=== PATIENT | female | born 1970 | race Caucasian/White ===

== ENCOUNTER 2021-01-03 08:43 | Outpatient (REF) | payer OTHER, SELFPAY ==
[2021-01-03 11:03] LABS: Hemoglobin 12.6 g/dl (12.0-16.0); Mean Corpuscular HGB Conc 33.2 g/dl (31.0-35.0); Mean Corpuscular Hemoglobin 29.2 pg (27.0-33.0); Mean Platelet Volume 9.7 fL (9.4-12.3); Platelet Count 235 X10*3/uL (160-400); Red Blood Count 4.32 X10*6/uL (4.20-5.50); Red Cell Distribution Width 12.1 % (11.0-16.0); White Blood Count 4.9 X10*3/uL (4.8-10.8)
[2021-01-03 11:29] LABS: Alanine Aminotransferase 22 U/L (0-31); Albumin Level 4.5 g/dL (3.5-5.0); Alkaline Phosphatase 62 U/L (39-117); Anion Gap 12 (12-20); Aspartate Amino Transferase 17 U/L (5-31); Bilirubin Total 0.3 mg/dL (0.0-1.0); Blood Urea Nitrogen 22 mg/dL (9-16); Calcium 9.2 mg/dL (8.4-10.2); Carbon Dioxide 25 mmol/L (22-29); Chloride 107 mmol/L (96-108); Cholesterol 224 mg/dL; Estimated Glomerular Filt Rate > 60; Glucose Random 102 mg/dL (60-115); HDL Cholesterol 61 mg/dL; LDL Cholesterol Calculated 147 mg/dl; Potassium 4.2 mmol/L (3.3-5.1); Sodium 140 mmol/L (135-145); Total Protein 7.2 g/dL (6.5-8.0); Triglycerides 80 mg/dL
== END 2021-01-03 08:44 | disposition home or self-care (01) ==
LOC: HO.WFDLDS 08:43
PROVIDERS: Visit Provider Hospitalist
DX: Z00.00 Encounter for general adult medical examination without abnormal findings (principal)
CPT/HCPCS: 36415; 80053; 80061; 84443; 85027

== ENCOUNTER 2021-03-13 15:30 | Outpatient (REF) | payer OTHER, SELFPAY ==
--- NOTE | ~2021-03-13 | MM_ITS ---
EXAMINATION: MM SCREENING DIGITAL BREAST TOMOSYNTHESIS, BILATERAL CLINICAL INFORMATION: Screening. Asymptomatic. The lifetime risk of breast cancer based on the Tyrer-Cuzick Model is 13%. COMPARISON: Outside mammography: 03/09/2013 ([facility]). TECHNIQUE: Digital breast tomosynthesis is performed in both the craniocaudal and mediolateral oblique views along with computer-aided detection (CAD). Synthesized 2D images are generated from the tomosynthesis. FINDINGS: There are scattered areas of fibroglandular density (ACR BI-RADS breast composition Category b). Parenchymal pattern is similar to prior outside exam. There is no interval mass or architectural abnormality or abnormal calcifications. Small circumscribed nodular asymmetry central left breast on CC view is stable. Again, there are scattered round, rim, predominantly dermal calcifications as before. The axilla and skin contours are unremarkable. MM/MM tomosynthesis screening BI IMPRESSION: No significant changes from prior outside exam. ASSESSMENT: BI-RADS 2: Benign RECOMMENDATION: Routine annual mammography screening. This patient's information was entered into a reminder system with a target due date for their next mammogram.
== END 2021-03-13 15:31 | disposition home or self-care (01) ==
LOC: HO.MAMMO 15:30
PROVIDERS: Visit Provider Hospitalist
DX: Z12.31 Encounter for screening mammogram for malignant neoplasm of breast (principal)
CPT/HCPCS: 77063; 77067

== ENCOUNTER 2021-11-03 14:33 | Outpatient (REF) | payer OTHER, SELFPAY ==
--- NOTE | ~2021-11-03 | XR_ITS ---
EXAMINATION: XR LUMBOSACRAL SPINE WITH OBLIQUES CLINICAL INFORMATION: Lower back pain radiating to the left lower extremity. COMPARISON: None. TECHNIQUE: AP, both oblique, and lateral views of the lumbar spine. Lateral view of the lumbosacral junction. FINDINGS: Normal vertebral body alignment. The lumbar lordosis is maintained. No acute fracture or subluxation. No loss of vertebral body height. Moderate loss of intervertebral disc height with endplate osteophytes and bilateral facet arthropathy at L5-S1. No concerning lytic or blastic osseous lesion. Moderate stool burden. XR/XR lumbar spine 4V min IMPRESSION: Moderate degenerative disc disease and bilateral facet arthropathy at L5-S1. Moderate stool burden.
== END 2021-11-03 14:34 | disposition home or self-care (01) ==
LOC: HO.HMGCX 14:33
PROVIDERS: PCP Hospitalist; Visit Provider Physician Assistant Medical
DX: M54.50 Low back pain, unspecified (principal)
CPT/HCPCS: 72110

== ENCOUNTER 2022-01-07 09:08 | Outpatient (REF) | payer OTHER, SELFPAY ==
[2022-01-07 11:48] LABS: Hematocrit 41.1 % (37.0-47.0); Hemoglobin 13.5 g/dl (12.0-16.0); Mean Corpuscular HGB Conc 32.8 g/dl (31.0-35.0); Mean Corpuscular Hemoglobin 29.2 pg (27.0-33.0); Mean Corpuscular Volume 88.8 fL (80.0-98.0); Mean Platelet Volume 9.5 fL (9.4-12.3); Platelet Count 237 X10*3/uL (160-400); Red Blood Count 4.63 X10*6/uL (4.20-5.50); Red Cell Distribution Width 12.2 % (11.0-16.0); White Blood Count 5.1 X10*3/uL (4.8-10.8)
[2022-01-07 12:03] LABS: Alanine Aminotransferase 20 U/L (0-31); Alkaline Phosphatase 73 U/L (39-117); Anion Gap 17 (12-20); Aspartate Amino Transferase 18 U/L (5-31); Bilirubin Total 0.4 mg/dL (0.0-1.0); Blood Urea Nitrogen 19 mg/dL (9-16); Carbon Dioxide 24 mmol/L (22-29); Chloride 105 mmol/L (96-108); Cholesterol 237 mg/dL; Estimated Glomerular Filt Rate > 60; Glucose Fasting 107 mg/dL (60-99); HDL Cholesterol 62 mg/dL; LDL Cholesterol Calculated 165 mg/dl; Potassium 4.5 mmol/L (3.3-5.1); Sodium 141 mmol/L (135-145); Triglycerides 53 mg/dL
[2022-01-07 12:28] LABS: TSH reflex Free T4 1.65 uIU/mL (0.32-4.0)
[2022-01-11 15:11] LABS: Vitamin D 25-OH, D2 <4 ng/mL; Vitamin D 25-OH, D3 17 ng/mL; Vitamin D 25-OH, Total 17 ng/mL (30-100)
== END 2022-01-07 09:09 | disposition home or self-care (01) ==
LOC: HO.WFDLDS 09:08
PROVIDERS: Visit Provider Hospitalist
DX: Z00.00 Encounter for general adult medical examination without abnormal findings (principal); Z83.49 Family history of other endocrine, nutritional and metabolic diseases
CPT/HCPCS: 36415; 80053; 80061; 82306; 84443; 85027

== ENCOUNTER 2023-04-21 13:32 | Outpatient (AMB) | payer OTHER, SELFPAY ==
--- NOTE | 2023-04-21 13:35 | MHC.PC.OV ---
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 Accompanied by: Self / Same As Patient Allergies No Known Allergies [No Known Allergies*] Allergy (Verified 04/21/23 13:53) Medication List - Last Reconciled 04/21/23 by Yasmin Fried MD cholecalciferol (vitamin D3) 1,250 mcg PO QWEEK docusate sodium (Colace Clear) 50 mg PO DAILY PRN multivitamin 1 tab PO DAILY Tobacco use date assessed: 04/21/23 Dental Screening Dental Screen Date: 04/21/23 Did you have a dental visit in the last 12 months?: No Did you have a dental problem in the last 6 months where you did not have access to dental care?: No Was dental information given to patient?: Patient has dentist HPI HPI Comments History of Present Illness Details This is a 52-year-old female with pure hypercholesterolemia, impaired glucose tolerance, obesity and low vitamin-D that comes today to establish care. She has a skin lesion in scalp and few other skin lesions that would like Dermatology to look at. Cholesterol was elevated and I will recheck it. Fasting blood glucose was slightly elevated and this will be repeated. She is obese with a BMI of 34 and was advised to do diet and exercise. On vitamin-D supplements for low vitamin-D that will be recheck. No chest pain or shortness of breath. GERD has been stable with PPIs. [facility] Surgical History History of ankle surgery History of section History of arthroscopy of right knee Family History Father No problems noted. Mother No problems noted. Son Autism Bicuspid aortic valve Social History Housing: House Alcohol intake: current Alcohol intake frequency: a few times a week Alcohol type: beer and wine Patient Tobacco Use Status: Former Tobacco user Tobacco use type: Cigarette e-Cigarette/Vaping Use: Never Used Second Hand Smoke Exposure: No service: No Current occupational status: employed 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[employer] Current occupational exposures/hazards: No Cognitive needs: No Hearing needs: No Vision needs: Yes Questionnaire PHQ-9 Over the last 2 weeks, how often have you been bothered by any of the following problems? 1. Little interest or pleasure in doing things: not at all 2. Feeling down, depressed, or hopeless: not at all 3. Trouble falling or staying asleep, or sleeping too much: not at all 4. Feeling tired or having little energy: not at all 5. Poor appetite or overeating: not at all 6. Feeling bad about yourself - or that you are a failure or have let yourself or your family down: not at all 7. Trouble concentrating on things, such as reading the newspaper or watching television: not at all 8. Moving or speaking so slowly that other people could have noticed. Or the opposite - being so fidgety or restless that you have been moving around a lot more than usual: not at all 9. Thoughts that you would be better off or of hurting yourself in some way: not at all Total score: 0 Depression Screening Interpretation: Negative Depression Screening Done: Yes 67061 - PHQ-9 Billing: Yes Source: Developed by Drs. Nawaf Augustin, Kaila Moran, Maurice Parada and colleagues, with an educational erika from [employer]. Thrive Questionnaire Date Thrive assessed: 04/21/23 I am a: Patient What is your living situation today?: I have a steady place to live Within the past 12 months, did the food you bought not last and you didn't have the money to get more?: Never true Within the past 12 months, did you worry whether your food would run out before you got money to buy more?: Never true Do you have trouble paying for medicines?: No Do you have trouble getting transportation to medical appointments?: No Do you have trouble paying your heating and electricity bill?: No Do you have trouble taking care of your child, family member or friend?: No Do you have trouble with day-to-day activities such as bathing, preparing meals, shopping, managing finances, etc.?: No Are you currently unemployed and looking for a job?: No Are you interested in more education?: No Please select the resources that you would like help with: None Currently or been in a relationship where the following occur: no concerns reported THRIVE Score: 0 AUDIT C Alcohol Use Questionnaire (AUDIT-C) 1. How often do you have a drink containing alcohol?: 2-4 times a month 2. How many drinks containing alcohol do you have on a typical day when you are drinking?: 1 or 2 3. How often do you have six or more drinks on one occasion?: Never Total Score: 2 Score Reviewed/Action Taken: No KEVIN-7 AMB Questionnaire KEVIN-7 Date KEVIN - 7 assessed: 04/21/23 Feeling nervous, anxious, or on edge: 1 = Several days Not being able to stop or control worryin = Not at all Worrying too much about different things: 0 = Not at all Trouble relaxin = Not at all Being so restless that it is hard to sit still: 0 = Not at all Becoming easily annoyed or irritable: 0 = Not at all Feeling afraid as if something awful might happen: 0 = Not at all Total KEVIN-7 score (0-4 normal; 5-9 mild; 10-14 moderate; 15-21 severe): 1 Source: Developed by Drs. Nawaf Augustin, Kaila Moran, Maurice Parada and colleagues, with an educational erika from [employer]. KEVIN-7 Assessment Billing KEVIN-7 Assessment Tool: KEVIN-7 Assessment 93609 Review of Systems Const All systems reviewed & are unremarkable except as noted in HPI and below Eyes Reports no additional complaints, Denies change in vision and Denies other visual disturbances Card Denies chest pain at rest, Denies chest pain with activity, Denies edema, Denies irregular heart rhythm, Denies claudication, Denies dyspnea, Denies dyspnea on exertion, Denies orthopnea, Denies paroxysmal nocturnal dyspnea and Denies slow heart rate Resp Denies cough, Denies dyspnea and Denies dyspnea on exertion GI Denies abdominal pain, Denies change in bowel habits, Denies excessive flatus, Denies nausea and Denies vomiting Denies urinary incontinence, Denies urinary hesitancy and Denies urinary urgency Musc Denies abnormal gait, Denies atrophy, Denies deformity and Denies limited range of motion Skin/Breast Denies bleeding lesions, Reports changing lesions and Denies rash Neuro Denies abnormal gait and Denies lack of coordination Physical exam (Primary Care) Vital Signs: Last Vital Signs BP 120/78 04/21/23 13:36 BMI result Body Mass Index 34.0 Tobacco/Smoking Status: Tobacco use Status Tobacco use date assessed 04/21/23 04/21/23 13:42 Patient Tobacco Use Status Former Tobacco user 04/21/23 13:42 Tobacco use type Cigarette 04/21/23 13:42 e-Cigarette/Vaping Use Never Used 04/21/23 13:42 PHQ-9: PHQ-9 Score PHQ-9: Total score 0 04/21/23 13:42 Depression Screening Interpretation: Negative Thrive Assessment: Date of Thrive Assessment Date Thrive assessed 04/21/23 04/21/23 13:42 Currently or been in a relationship where the following occur: no concerns reported Eyes General: appearance normal, both eyes and all related structures Eyelids: Yes eyelids normal Conjunctivae: conjunctivae normal Neck Neck: Yes normal visual inspection and Yes supple Resp Effort & Inspection: normal respiratory effort Auscultation: clear to auscultation bilaterally Cardio Jugular venous distension: no JVD Rate: regular rate Rhythm: regular rhythm Heart sounds: S1 normal heart sound present and S2 normal heart sound present Extrem General: Yes full ROM Assessment and Plan Assessment & Plan (1) Impaired glucose tolerance: Code(s): R73.02 - Impaired glucose tolerance (oral) Plan: Recheck fasting blood glucose. (2) Skin lesion: Code(s): L98.9 - Disorder of the skin and subcutaneous tissue, unspecified Plan: Referred to dermatology. (3) Hypovitaminosis D: Code(s): E55.9 - Vitamin D deficiency, unspecified Plan: Repeat vitamin-D levels. Continue vitamin-D supplements. (4) Pure hypercholesterolemia: Code(s): E78.00 - Pure hypercholesterolemia, unspecified Plan: Lipid panel ordered. Orders: Orders Vitamin D 25-OH Total Today E55.9 - Vitamin D deficiency, unspecified Thyroid Stimulating Hormone Today E66.9 - Obesity, unspecified Lipid Panel Today E78.5 - Hyperlipidemia, unspecified Comprehensive [place]. Panel Fast Today R73.02 - Impaired glucose tolerance (oral) Complete Blood Count Auto Diff Today E66.9 - Obesity, unspecified Referrals Gastroenterology Referral Z12.11 - Encounter for screening for malignant neoplasm of colon Dermatology Referral L98.9 - Disorder of the skin and subcutaneous tissue, unspecified Coding Level of Care Code Est Pt Level 4 (10190) Diagnoses Impaired glucose tolerance R73.02 Skin lesion L98.9 Hypovitaminosis D E55.9 Pure hypercholesterolemia E78.00 Additional Codes KEVIN-7 Assessment Billing - KEVIN-7 Assessment Tool: KEVIN-7 Assessment 65985 ([id number]) Time Spent (min) 20
[2023-04-21 13:36] VITALS: BP 120/78; BMI 34.0
== END 2023-04-21 14:06 | disposition home or self-care (01) ==
PROVIDERS: PCP Hospitalist; Visit Provider Internal Medicine
DX: R73.02 Impaired glucose tolerance (oral) (principal); L98.9 Disorder of the skin and subcutaneous tissue, unspecified; E55.9 Vitamin D deficiency, unspecified; E78.00 Pure hypercholesterolemia, unspecified
CPT/HCPCS: 99214

== ENCOUNTER 2023-05-05 16:05 | Outpatient (REF) | payer OTHER, SELFPAY ==
--- NOTE | ~2023-05-05 | MM_ITS ---
EXAMINATION: MM SCREENING DIGITAL BREAST TOMOSYNTHESIS, BILATERAL CLINICAL INFORMATION: Screening. Asymptomatic. COMPARISON: Mammography: This study is compared with prior exams dating back to 2013. TECHNIQUE: Digital breast tomosynthesis is performed in both the craniocaudal and mediolateral oblique views along with computer-aided detection (CAD). Synthesized 2D images are generated from the tomosynthesis. FINDINGS: There are scattered areas of fibroglandular density (ACR BI-RADS breast composition Category b). There are no significant masses, abnormal calcifications, or other abnormalities. MM/MM tomosynthesis screening BI IMPRESSION: No mammographic evidence of malignancy. ASSESSMENT: BI-RADS BI-RADS 1 - Negative RECOMMENDATION: Routine annual mammography screening. 1 year F/U This examination should not preclude the clinical evaluation of a suspicious palpable abnormality. This patient's information was entered into a reminder system with a target due date for their next mammogram.
== END 2023-05-05 16:06 | disposition home or self-care (01) ==
LOC: HO.MAMMO 16:05
PROVIDERS: PCP Internal Medicine; Visit Provider Internal Medicine
DX: Z12.31 Encounter for screening mammogram for malignant neoplasm of breast (principal)
CPT/HCPCS: 77063; 77067

== ENCOUNTER → 2023-05-05 16:15 | Outpatient (BNV) | payer OTHER, SELFPAY | PROVIDERS: PCP Internal Medicine; Visit Provider Radiology Diagnostic Radiology | DX: Z12.31 Encounter for screening mammogram for malignant neoplasm of breast (principal) | CPT/HCPCS: 77063; 77067 ==

== ENCOUNTER 2023-08-29 06:15 | Outpatient (REF) | payer OTHER, SELFPAY ==
[2023-08-29 06:33] LABS: MANUAL DIFF FLAG NO
[2023-08-29 07:22] LABS: Basophils Percent Auto 0.6 % (0-2); Eosinophils Absolute Auto 0.2 X10*3/uL (0.0-0.4); Eosinophils Percent Auto 2.9 % (0-4); Hemoglobin 12.4 g/dl (12.0-16.0); Imm Gran Abs Auto 0.01 X10*3/uL (0.00-0.03); Imm Gran Pct Auto 0.2 % (0.0-0.4); Lymphocytes Absolute Auto 2.2 X10*3/uL (1.2-4.9); Lymphocytes Percent Auto 34.7 % (20-40); Mean Corpuscular HGB Conc 33.5 g/dl (31.0-35.0); Mean Corpuscular Volume 89.4 fL (80.0-98.0); Mean Platelet Volume 9.2 fL (9.4-12.3); Monocytes Absolute Auto 0.6 X10*3/uL (0.1-1.2); Neutrophils Absolute Auto 3.2 x10*3/uL (2.0-8.3); Neutrophils Percent Auto 51.6 % (45-73); Platelet Count 239 X10*3/uL (160-400); Red Blood Count 4.14 X10*6/uL (4.20-5.50); Red Cell Distribution Width 12.6 % (11.0-16.0); White Blood Count 6.2 X10*3/uL (4.8-10.8)
[2023-08-29 07:26] LABS: Alanine Aminotransferase 18 U/L (0-31); Albumin Level 4.3 g/dL (3.5-5.0); Alkaline Phosphatase 63 U/L (39-117); Anion Gap 13 (12-20); Aspartate Amino Transferase 18 U/L (5-31); Bilirubin Total 0.4 mg/dL (0.0-1.0); Blood Urea Nitrogen 21 mg/dL (9-16); Calcium 9.7 mg/dL (8.4-10.2); Carbon Dioxide 25 mmol/L (22-29); Chloride 106 mmol/L (96-108); Cholesterol 227 mg/dL (<200); Estimated Glomerular Filt Rate > 60; Glucose Fasting 99 mg/dL (60-99); HDL Cholesterol 59 mg/dL (>40); LDL Cholesterol Calculated 153 mg/dL (<100); Potassium 4.1 mmol/L (3.3-5.1); Sodium 140 mmol/L (135-145); Triglycerides 79 mg/dL (<150)
[2023-08-29 07:43] LABS: Thyroid Stimulating Hormone 4.45 uIU/mL (0.32-4.0); Vitamin D 25-OH Total 36.1 ng/mL (>30)
== END 2023-08-29 06:16 | disposition home or self-care (01) ==
LOC: HO.LAB 06:15
PROVIDERS: PCP Internal Medicine; Visit Provider Internal Medicine
DX: E66.9 Obesity, unspecified (principal); R73.02 Impaired glucose tolerance (oral); E55.9 Vitamin D deficiency, unspecified; E78.5 Hyperlipidemia, unspecified
CPT/HCPCS: 36415; 80053; 80061; 82306; 84443; 85025

== ENCOUNTER 2023-09-05 07:55 | Outpatient (AMB) | payer OTHER, SELFPAY ==
--- NOTE | 2023-09-05 07:56 | A.OFFVIS_ITS ---
Vital Signs 09/05/23 07:57 Height 5 ft 9 in Weight 230 lb BMI 34.0 BP 127/61 Blood Pressure Location Lt brachial Position Sitting Pulse 72 Intake Visit Reasons: Colonoscopy Screening Intake Note: Patient new consult for Pre Colonoscopy screening. Patient cc: diarrhea and constipation on and off, denies any other GI issues. 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 female with past medical history of hypercholesteremia, obesity, vitamin-D deficiency is here today for pre colonoscopy screening.? Patient was sent to us by /her PCP.? Last colonoscopy over 5 years ago. Patient had polyps sent. Patient denies any gastrointestinal symptoms in the past or at present.? Reports to have constipation sometimes. Patient uses fiber supplement and stool softeners to help her go to the bathroom. Patient denies any melena, hematochezia, unintentional weight loss or ribbon like stools. Denies any personal or family history of gastrointestinal disease, colon polyps, or CRC.? Denies history of difficulty with sedation or anesthesia in the past.? Negative for history of sleep apnea.? Denies any history of cardiac, renal, pulmonary, or hepatic disease.?? No history of infectious? diseases like hepatitis A, B, C, HIV or tuberculosis.? Patient is not on any anticoagulation [facility] Surgical History History of ankle surgery History of section History of arthroscopy of right knee Family History Father No problems noted. Mother No problems noted. Son Autism Bicuspid aortic valve Social History Housing: House Alcohol intake: current Alcohol intake frequency: a few times a week Alcohol type: beer and wine Patient Tobacco Use Status: Former Tobacco user Tobacco use type: Cigarette e-Cigarette/Vaping Use: Never Used Second Hand Smoke Exposure: No service: No Current occupational status: employed Current occupation: - [employer] Current occupational exposures/hazards: No Cognitive needs: No Hearing needs: No Vision needs: Yes Physical Exam Vital Signs: Last Vital Signs Pulse 72 09/05/23 07:57 BP 127/61 09/05/23 07:57 BMI result Body Mass Index 34.0 Assessment & Plan Assessment & Plan (1) Screen for colon cancer: Code(s): Z12.11 - Encounter for screening for malignant neoplasm of colon Category: Medical Plan Patient denies any GI, cardiac or respiratory symptoms.? Denies any issues with anesthesia in the past.? Denies any history of sleep apnea.? No history infectious diseases in the past or present.? Not on any anticoagulation therapy.? No family or personal history of colon cancer or polyps.? Patient denies melena, hematochezia, unintentional weight loss or ribbon like stools.? Discussed at length the pre-procedure,? prep, diet & medications as well as what to expect prior, during and after the procedure.?? Stressed the importance of good bowel prep.? Recommended the use of Vaseline or Calmoseptine OTC & baby wipes with bowel movements to promote comfort.? ?Patient verbalizes understanding and agrees to plan of care.? She was given the opportunity to ask questions and all questions answered.? We will see her after the procedure.? Medications: New bisacodyl (Dulcolax (bisacodyl)) take 4 tabs at noon the day before your colonoscopy 20 mg (4 x 5 mg) PO ONCE 1 day 4 tabs 0RF Z12.11 - Encounter for screening for malignant neoplasm of colon polyethylene glycol 3350 (Miralax) As directed by gastro[facility]ology department at [facility] 238 grams PO ONCE 238 grams 0RF Z12.11 - Encounter for screening for malignant neoplasm of colon Coding Level of Care Code New Pt Level 3 (97301) Diagnoses Screen for colon cancer Z12.11 Time Spent (min) 40 Comment 30 minutes spent with patient and additional 10 minutes spent reviewing her records
[2023-09-05 07:57] VITALS: BP 127/61; PULSE 72; BMI 34.0
== END 2023-09-05 08:56 | disposition home or self-care (01) ==
PROVIDERS: PCP Internal Medicine; Visit Provider Nurse Practitioner Family
DX: Z01.818 Encounter for other preprocedural examination (principal); Z12.11 Encounter for screening for malignant neoplasm of colon
CPT/HCPCS: S0285

== ENCOUNTER → 2023-09-05 07:55 | Outpatient (BNVA) | payer OTHER, SELFPAY | PROVIDERS: PCP Internal Medicine; Visit Provider Nurse Practitioner Family ==

== ENCOUNTER 2024-02-23 08:59 | Day surgery (SDC) | payer OTHER, SELFPAY ==
[2024-02-19 09:24] VITALS: BMI 34.0
[2024-02-23 09:16] VITALS: BMI 35.0
[2024-02-23 09:32] VITALS: BP 116/72; PULSE 79; RESP 15; TEMP 36.5; O2SAT 98
--- NOTE | 2024-02-23 09:52 | P.HPSUR_ITS ---
Pre-Procedural Eval Section A - 24 Hr Update-Section A only Date of Service: 02/23/24 The patient is an INPATIENT: No The patient has been examined within 24 hours of the surgical procedure. The History & Physical has been completed within 30 days and I have reviewed it.: No Section B - Complete if H&P > 30 days Chief Complaint: screening Relevant Family History (Specify if Yes): No Relevant Social History: Tobacco Use (Former smoker) Present Medications: see Short Stay Collaborative assessment Medical History: Significant History (Obesity, hypercholesterolemia, elevated TSH) History of Previous Operations: Relevant previous surgery/procedure and date(s) (History of ankle surgery History of section History of arthroscopy of right knee) Allergies: Allergies Allergy/AdvReac Type Severity Reaction Status Date / Time No Known Allergies Allergy Verified 02/23/24 09:14 [No Known Allergies*] Review of Systems Sugical H&P ROS: Negative: Constitution, Cardiovascular, Respiratory and Gastroi ntestinal Exam Surgical H&P Exam: Normal: Heart, Normal: Lungs, Normal: Extremities and Normal: Abdomen Plan Diagnosis/Plan: Unchanged I have reviewed the history and physical and performed a pertinent physical examination on my patient. No changes have occurred unless specified. Time Spent With Patient Time: Total time managing care of this patient today ____ minutes.
[2024-02-23] MEDS: Lactated Ringers 1,000 ML 50 ML IVCONT (10:08)
--- NOTE | 2024-02-23 10:52 | HO.ANESPROP2 ---
HPI - Anesthesia Eval Consult details Narrative: 53 yo female patient for Colonoscopy PMFSH Active Problems Active Problems: All Active Problems Elevated TSH (Acute) Pure hypercholesterolemia (Acute) Hypovitaminosis D (Acute) Obesity (BMI 30.0-34.9) (Acute)BMI 35 Impaired glucose tolerance (Acute) Skin lesion (Acute) Screen for colon cancer (Acute) Screening for skin cancer (Acute) Vitamin deficiency (Acute) Family history of vitamin D deficiency (Acute) Normal physical exam (Acute) Encounter for annual general medical examination without abnormal findings in adult (Acute) Denies CATRACHO Past Medical History Medical History Low vitamin D level Family History Family History Father No problems noted. Mother No problems noted. Son Autism Bicuspid aortic valve Family history of problems with anesthesia: No Surgical History Surgical History H/O colonoscopy History of ankle surgery History of section History of arthroscopy of right knee History of Problems with Anesthesia: No Social History Social History Housing: House Alcohol intake: current Alcohol intake frequency: a few times a week Alcohol type: beer and wine Patient Tobacco Use Status: Former Tobacco user Tobacco use type: Cigarette e-Cigarette/Vaping Use: Never Used Second Hand Smoke Exposure: No Use of substances other than those prescribed or required for medical reasons: Yes Substance Use Type Other:: edible occasional to sleep Are you DNR?: No Advance Directives: No Advance Directives Information Provided: Yes service: No Current occupational status: employed 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[employer] Current occupational exposures/hazards: No Cognitive needs: No Hearing needs: No Vision needs: Yes Meds Allergies Allergy/AdvReac Type Severity Reaction Status Date / Time No Known Allergies Allergy Verified 02/23/24 09:14 [No Known Allergies*] Active Medications: Current Medications Lactated Ringer's (Lr) 1,000 mls @ 50 mls/hr IVCONT .Q20H SORAIDA Last Admin: 02/23/24 10:08 Dose: 50 mls/hr Home Medications ?Medication ?Instructions ?Recorded ?Confirmed ?Last Taken ?Type docusate sodium 50 mg capsule 50 mg PO DAILY PRN Constipation 01/07/22 02/23/24 Unknown History (Colace Clear) multivitamin 1 tab PO DAILY 01/07/22 02/23/24 Unknown History Exam Height,Weight and Vital Signs: Height 5 ft 9 in Weight 107.501 kg Last Vital Signs Temp 97.7 F 02/23/24 09:32 Pulse 79 02/23/24 09:32 Resp 15 02/23/24 09:32 BP 116/72 02/23/24 09:32 Pulse Ox 98 02/23/24 09:32 O2 Del Method Room Air 02/23/24 09:32 Airway Mallampati Class: II TM Dist: >3cm Neck ROM: Full Loose/Missing/Broken Teeth: Yes (Missing top left back. Loose bottom back right) Heart: RRR Lungs: CTAB Assessment and Plan Assessment Anesthesia Assessment: Anesthesia Plan Discussed and Chart Reviewed Final Anesthetic Review Family History of Problems with Anesthesia: No History of Problems with Anesthesia: No NPO: Yes ASA Class: II Final Preanesthetic Review: No Changes in Pt Med Stat, Meds/Allgs Chart Reviewed, Consent Obtained/Reviewed and Anes Risks/Benef Reviewed Patient Risk: Intermediate Procedure Risk: Low Assessment/Block/Sedation in SS: Assess/Block/Sedation-SS Anesthetic Plan Anesthetic Plan: TIVA Disposition: Standard PACU
--- NOTE | 2024-02-23 11:56 | P.OPN-COLO_ITS ---
Colonoscopy Operative Note Operative Note Date of Service: 02/23/24 Narrative: COLONOSCOPY TILL CECUM WITH BIOPSIES Pre-op diagnosis: Surveillance for colon polyps. Post-op diagnosis:? Colon polyp, Diverticulosis, hemorrhoids Endoscopist:? Dorcas Matthews MD Anesthesia:?MAC Consent: Indications for the procedure and potential complications of bleeding, perforation, reaction to medications and missed diagnosis were discussed with the patient and informed consent was obtained. Instrument: Olympus CF H 190 L variable stiffness adult colonoscope Monitoring: Vital signs and clinical assessment, intermittent blood pressure monitoring, continuous EKG monitoring, Pulse oximetry and Carbon Dioxide monitoring were done throughout the procedure. Please see anesthesia flowsheet. Colon withdrawl time was 18 minutes. Procedure: The patient was placed in the left lateral decubitis position and pre-procedure medications were administered. After a digital rectal examination of the ano-rectum, the video colonoscope was inserted into the rectum and advanced through the colon to the cecum. The colonoscope was slowly withdrawn in a retrograde panoramic fashion and the colon mucosa was carefully examined including a retroflexed view of the rectum. Findings and interventions are described below. Procedure Difficulty: Colon was long and tortuous and there was some loop formation Findings: Terminal Ileum: Not evaluated Cecum: Normal Ascending Colon: Normal Transverse Colon: Normal Descending Colon: Normal Sigmoid Colon: Moderate diverticulosis Rectum: A 3-4 mm diminutive appearing polyp - removed with a cold biopsy Ano-rectum: Moderate internal hemorrhoids and a skin tag at the anal verge Colon preparation: Good after some irrigation. [place] Bowel Preparation Scale Right colon; 2 Transverse colon: 2 Left colon; 2 (0 = Unprepared colon segment with mucosa not seen due to solid stool that ca nnot be cleared. 1 = Portion of mucosa of the colon segment seen, but other areas of the colon segment not well seen due to staining, residual stool and/or opaque liquid. 2 = Minor amount of residual staining, small fragments of stool and/or opaque liquid, but mucosa of colon segment seen well. 3 = Entire mucosa of colon segment seen well with no residual staining, small fragments of stool or opaque liquid) Impression and Post Procedure Diagnosis: Colonoscopy Findings: One small polyp was removed Moderate diverticulosis seen in the sigmoid colon Moderate hemorrhoids on retroflexed exam. Plan: Pt has a FU appointment on 03/08/23 with Fallon Keenan NP Repeat Colonoscopy in 5 years if polyps are adenomatous and in 7 years if polyps are hyperlastic (due to history of one small adenomatous colon polyps on previous colonoscopy). Above findings were reviewed with the patient and relevant handouts were given and the discharge area. BIOPSIES SHOWED: Rectum, polypectomy: Hyperplastic mucosal polyp Letter sent advising repeat colonoscopy in 7 years. Patient was placed on the colonoscopy recall list.
[2024-02-23 11:58] VITALS: BP 114/69; PULSE 84; RESP 18; TEMP 36.5; O2SAT 97
[2024-02-23 12:13] VITALS: BP 122/80; PULSE 74; RESP 16; TEMP 36.5; O2SAT 99
== END 2024-02-23 12:35 | disposition home or self-care (01) ==
PROVIDERS: PCP Internal Medicine; Visit Provider Internal Medicine Gastroenterology
PROC: 0DJD8ZZ Inspection of Lower Intestinal Tract, Via Natural or Artificial Opening Endoscopic (ICD-10-PCS; CPT 45378; principal; 2024-02-23 10:20)
DX: Z12.11 Encounter for screening for malignant neoplasm of colon (principal); K62.1 Rectal polyp; K57.30 Diverticulosis of large intestine without perforation or abscess without bleeding; K64.8 Other hemorrhoids; K64.4 Residual hemorrhoidal skin tags; E78.00 Pure hypercholesterolemia, unspecified; E55.9 Vitamin D deficiency, unspecified; R94.6 Abnormal results of thyroid function studies; E66.9 Obesity, unspecified; Z68.34 Body mass index [BMI] 34.0-34.9, adult; Z79.899 Other long term (current) drug therapy; Z87.891 Personal history of nicotine dependence; Z98.890 Other specified postprocedural states
CPT/HCPCS: 45380; 88305; J2003; J2704

== ENCOUNTER → 2024-02-23 08:59 | Outpatient (BNV) | payer OTHER, SELFPAY | PROVIDERS: PCP Internal Medicine; Visit Provider Internal Medicine Gastroenterology | DX: Z12.11 Encounter for screening for malignant neoplasm of colon (principal); Z86.0100 Personal history of colon polyps, unspecified; K62.1 Rectal polyp; K57.30 Diverticulosis of large intestine without perforation or abscess without bleeding | CPT/HCPCS: 45380 ==

== ENCOUNTER 2024-05-10 16:07 | Outpatient (REF) | payer OTHER, SELFPAY | END 2024-05-10 16:08 | disposition home or self-care (01) | LOC: HO.MAMMO 16:07 | PROVIDERS: PCP Internal Medicine; Visit Provider Internal Medicine | DX: Z12.31 Encounter for screening mammogram for malignant neoplasm of breast (principal) | CPT/HCPCS: 77063; 77067 ==

== ENCOUNTER → 2024-05-10 16:15 | Outpatient (BNV) | payer OTHER, SELFPAY | PROVIDERS: PCP Internal Medicine; Visit Provider Internal Medicine | DX: Z12.31 Encounter for screening mammogram for malignant neoplasm of breast (principal) | CPT/HCPCS: 77063; 77067 ==

== ENCOUNTER 2024-09-28 13:16 | Outpatient (AMB) | payer OTHER, SELFPAY ==
--- NOTE | 2024-09-28 13:18 | MHC.PC.OV ---
Vital Signs 09/28/24 13:19 Height 5 ft 9 in Weight 211 lb BMI 31.2 BP 120/64 Blood Pressure Location Lt brachial Position Sitting Pulse 97 Pulse Source Pulse Oximeter Pulse Oximetry (%) 97 Oxygen Delivery Method Room Air Intake Visit Reasons: ear infection Radio Interference Supervisor Required: No Accompanied by: Self / Same As Patient Allergies No Known Allergies (No Known Allergies*) Allergy (Verified 09/28/24 13:48) Medication List - Last Reconciled 09/28/24 by Rudy Armstrong MD cholecalciferol (vitamin D3) 1,250 mcg PO QWEEK docusate sodium (Colace Clear) 50 mg PO DAILY PRN multivitamin 1 tab PO DAILY Tobacco use date assessed: 09/28/24 Dental Screening Dental Screen Date: 09/28/24 Did you have a dental visit in the last 12 months?: No Did you have a dental problem in the last 6 months where you did not have access to dental care?: No Was dental information given to patient?: No HPI ear infection HPI Details Patient comes in today for evaluation of her ear symptoms States that she has been experiencing on and off right ear pain for about 10 days now although her left ear has also been feeling a little sensitive to touch lately Relates that she has also been experiencing on and off sensation of vertigo/dizzy spells wherein she feels her surroundings going around her Also reports experiencing some nausea especially when her dizziness increases States that she has tried some OTC Ibuprofen earlier when her ear started bothering her and they were helping somewhat but not so much lately She has also tried some OTC ear drops for ear infections lately, which she states did not help She denies any recent cough/cold symptoms Denies any fever or sore throat; denies any headaches Denies any chest pains, no increased SOB No vomiting, no abdominal pain and no change in bowel habits noted PFSH Medical History Low vitamin D level Surgical History H/O colonoscopy History of ankle surgery History of section History of arthroscopy of right knee Family History Father No problems noted. Mother No problems noted. Son Autism Bicuspid aortic valve Social History Housing: House Alcohol intake: current Alcohol intake frequency: a few times a week Alcohol type: beer and wine Patient Tobacco Use Status: Former Tobacco user Tobacco use type: Cigarette e-Cigarette/Vaping Use: Never Used Second Hand Smoke Exposure: No service: No Current occupational status: employed Current occupation: - [employer] Current occupational exposures/hazards: No Cognitive needs: No Hearing needs: No Vision needs: Yes Questionnaire PHQ-9 Over the last 2 weeks, how often have you been bothered by any of the following problems? 1. Little interest or pleasure in doing things: not at all 2. Feeling down, depressed, or hopeless: not at all 3. Trouble falling or staying asleep, or sleeping too much: more than half the days 4. Feeling tired or having little energy: several days 5. Poor appetite or overeating: several days 6. Feeling bad about yourself - or that you are a failure or have let yourself or your family down: not at all 7. Trouble concentrating on things, such as reading the newspaper or watching television: several days 8. Moving or speaking so slowly that other people could have noticed. Or the opposite - being so fidgety or restless that you have been moving around a lot more than usual: several days 9. Thoughts that you would be better off or of hurting yourself in some way: not at all Total score: 6 Depression Screening Interpretation: Positive Depression Screening Follow-up: Follow-up Visit Requested Depression Screening Done: Yes [id number] - PHQ-9 Billing: Yes Source: Developed by Drs. Nawaf Augustin, Kaila Moran, Maurice Parada and colleagues, with an educational erika from [employer]. Thrive Questionnaire Date Thrive assessed: 09/28/24 I am a: Patient What is your living situation today?: I have a steady place to live Within the past 12 months, did the food you bought not last and you didn't have the money to get more?: I choose not to answer this question Within the past 12 months, did you worry whether your food would run out before you got money to buy more?: I choose not to answer this question Do you have trouble paying for medicines?: Yes Do you have trouble getting transportation to medical appointments?: No Do you have trouble paying your heating and electricity bill?: Yes Do you have trouble taking care of your child, family member or friend?: No Do you have trouble with day-to-day activities such as bathing, preparing meals, shopping, managing finances, etc.?: No Are you currently unemployed and looking for a job?: No Are you interested in more education?: No Please select the resources that you would like help with: None Currently or been in a relationship where the following occur: No concerns reported THRIVE Score: 1 AUDIT C Alcohol Use Questionnaire (AUDIT-C) 1. How often do you have a drink containing alcohol?: 2-4 times a month 2. How many drinks containing alcohol do you have on a typical day when you are drinking?: 3 or 4 3. How often do you have six or more drinks on one occasion?: Less than monthly Total Score: 4 Score Reviewed/Action Taken: Yes KEVIN-7 AMB Questionnaire KEVIN-7 Date KEVIN - 7 assessed: 09/28/24 Feeling nervous, anxious, or on edge: 0 = Not at all Not being able to stop or control worryin = Not at all Worrying too much about different things: 0 = Not at all Trouble relaxin = Several days Being so restless that it is hard to sit still: 1 = Several days Becoming easily annoyed or irritable: 0 = Not at all Feeling afraid as if something awful might happen: 0 = Not at all Total KEVIN-7 score (0-4 normal; 5-9 mild; 10-14 moderate; 15-21 severe): 2 Source: Developed by Drs. Nawaf Augustin, Kaila Moran, Maurice Parada and colleagues, with an educational erika from [employer]. Review of Systems Const Denies chills, Denies fatigue, Denies fever(s) and Denies headache(s) ENT Denies dysphagia, Reports dizziness (recurrent lately - see HPI), Denies ear discharge, Reports otalgia (on and off in the right ear), Denies headache(s), Denies neck pain, Denies odynophagia and Denies sore throat Card Denies chest pain, Denies palpitations and Denies dyspnea Resp Denies chest congestion, Denies cough and Denies dyspnea GI Denies abdominal pain, Denies constipation, Denies dysphagia, Denies heartburn, Denies diarrhea, Reports nausea (at times, especially when her dizziness increases), Denies odynophagia and Denies vomiting Denies difficulty voiding, Denies nocturia and Denies dysuria Musc Denies back pain and Denies neck pain Neuro Reports dizziness (recurrent lately - see HPI) and Denies headache(s) Endo Denies fatigue and Denies palpitations Physical exam (Primary Care) Vital Signs: Last Vital Signs Pulse 97 09/28/24 13:19 BP 120/64 09/28/24 13:19 Pulse Ox 97 09/28/24 13:19 Oxygen Delivery Method Room Air 09/28/24 13:19 BMI result Body Mass Index 31.2 Tobacco/Smoking Status: Tobacco use Status Tobacco use date assessed 09/28/24 09/28/24 13:29 Patient Tobacco Use Status Former Tobacco user 09/28/24 13:29 Tobacco use type Cigarette 09/28/24 13:29 e-Cigarette/Vaping Use Never Used 09/28/24 13:29 PHQ-9: PHQ-9 Score PHQ-9: Total score 6 09/28/24 13:51 Depression Screening Interpretation: Positive Depression Screening Follow-up: Follow-up Visit Requested Thrive Assessment: Date of Thrive Assessment Date Thrive assessed 09/28/24 09/28/24 13:29 Currently or been in a relationship where the following occur: No concerns reported Const General: no acute distress and alert HENMT Ears: TM normal on the left, Abnormal EAC present EAC tenderness bilateral; no erythema and no otic discharge and TM abnormal bulging (slightly) on the right Throat: Yes posterior oropharynx normal and Yes tonsils normal Neck Neck: Yes supple and No lymphadenopathy Thyroid: Thyroid normal Resp Auscultation: clear to auscultation bilaterally, no rales and no wheezes Cardio Rate: regular rate Rhythm: regular rhythm Heart sounds: no murmurs GI Palpation (GI): Soft to palpation and nontender Auscultation: normal bowel sounds Extrem General: Yes no clubbing, cyanosis or edema Coding Level of Care Code Est Pt Level 3 (64815) Diagnoses Acute otitis media, unspecified otitis media type H66.90 Chronicity: acute Otitis media type: unspecified Additional Codes PHQ-9 - 04982 - PHQ-9 Billing: Yes ([id number]) Assessment & Plan Assessment & Plan (1) Otitis media: Code(s): H66.90 - Otitis media, unspecified, unspecified ear Category: Medical Qualifiers: Chronicity: acute Otitis media type: unspecified Qualified Code(s): H66.90 - Otitis media, unspecified, unspecified ear Plan: Will start patient empirically on Augmentin 875 mg BID x 10 days Patient is advised to call if her ear symptoms do not improve significantly over the next 1 to 2 weeks Have advised that she can also take some OTC decongestants PRN if she wants to for potential additional symptom relief Plan She is advised to schedule her annual physical exam with her PCP sometime in the next few months as she has not been seen by her PCP in over 18 months now Medications: New amoxicillin-pot clavulanate 875-125 mg 1 tab PO BID 20 tabs 0RF 10 days
[2024-09-28 13:19] VITALS: BP 120/64; PULSE 97; O2SAT 97; BMI 31.2
== END 2024-09-28 13:55 | disposition home or self-care (01) ==
LOC: HO.HMCH 13:16
PROVIDERS: PCP Internal Medicine; Visit Provider Internal Medicine
DX: H66.90 Otitis media, unspecified, unspecified ear (principal)

== ENCOUNTER → 2024-09-28 13:16 | Outpatient (BNVA) | payer OTHER, SELFPAY | PROVIDERS: PCP Internal Medicine; Visit Provider Internal Medicine | DX: H92.01 Otalgia, right ear (principal); R42 Dizziness and giddiness; R11.0 Nausea; H66.90 Otitis media, unspecified, unspecified ear | CPT/HCPCS: 96127 ==

== ENCOUNTER 2025-01-12 15:01 | Outpatient (AMB) | payer OTHER, SELFPAY ==
--- NOTE | 2025-01-12 15:14 | MHC.PC.OV ---
Vital Signs 01/12/25 15:15 Height 5 ft 9 in Weight 204 lb BMI 30.1 BP 122/76 Blood Pressure Location Rt brachial Position Sitting Respiration 20 Pulse 83 Pulse Source Pulse Oximeter Temp 97.3 F Temp Source Temporal Artery Scan Pulse Oximetry (%) 100 Oxygen Delivery Method Room Air Intake Visit Reasons: Annual exam Intake Note: annual exam Eggs Inspector Required: No Accompanied by: Self / Same As Patient Allergies No Known Allergies (No Known Allergies*) Allergy (Verified 01/12/25 15:35) Medication List - Last Reconciled 01/12/25 by Yasmin Fried MD cholecalciferol (vitamin D3) 1,250 mcg PO QWEEK docusate sodium (Colace Clear) 50 mg PO DAILY PRN multivitamin 1 tab PO DAILY Tobacco use date assessed: 09/28/24 Dental Screening Dental Screen Date: 09/28/24 HPI HPI Comments History of Present Illness Details The patient is a 54-year-old female presenting for a physical exam. She reports significant weight loss of 40 pounds since May 25, going from 244 lbs to 204 lbs through changes in diet and exercise, including walking and using a treadmill. She feels much better with the weight loss, although the rate of loss has recently slowed. The patient describes her gut as being all over the place, with fluctuating bowel habits. She experiences periods of constipation, for which she uses Colace as needed, alternating with weeks of having three to four diarrheal stools per day. She sometimes uses a fiber supplement, and her colonoscopy last year was normal. The patient is seeking a referral to a payroll administrative assistant for a full-body skin check. She has a family history of skin cancers and a personal history of frequent sunburns. She reports a lesion on her back that is sometimes tingly, painful, and itchy, and another spot on her head. A prior dermatology visit for the head lesion was unsatisfactory. Past medical history is notable for vertigo, including a severe episode associated with an ear infection that prevented her from driving. She is not currently taking her prescribed vitamin D supplement and requests a new prescription; her last level was normal while on the supplement. Her surgical history includes ankle surgery, two C-sections, and a right knee arthroscopy. The patient has a significant family history of Alzheimer's disease. Her mother is in a memory care unit with dementia, and her 52-year-old brother has early-onset, aggressive Alzheimer's confirmed by genetic testing. Her father at age 79 from a sudden cardiac event. Regarding health maintenance, her mammogram was completed this year and her colonoscopy was about a year ago; both were normal. She intends to get the flu vaccine at a pharmacy soon. - The patient completed her mammogram this year. - The patient's last colonoscopy was approximately one year ago and was normal. - The patient plans to get her influenza vaccine at a pharmacy, opting for a weekend to manage potential side effects like fever. - Patient is due for repeat blood work. - A full-body skin examination by a payroll administrative assistant is recommended due to family history of skin cancer and personal history of sunburns. [facility] Medical History Low vitamin D level Surgical History H/O colonoscopy History of ankle surgery History of section History of arthroscopy of right knee Family History (Updated 01/12/25 @ 15:47 by Yasmin Fried MD) Father Essential hypertension Mother Dementia Son Autism Bicuspid aortic valve Brother Dementia Social History Housing: House Alcohol intake: current Alcohol intake frequency: a few times a week Alcohol type: beer and wine Patient Tobacco Use Status: Former Tobacco user Tobacco use type: Cigarette e-Cigarette/Vaping Use: Never Used Second Hand Smoke Exposure: No service: No Current occupational status: employed 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[employer] Current occupational exposures/hazards: No Cognitive needs: No Hearing needs: No Vision needs: Yes Questionnaire Thrive Questionnaire Date Thrive assessed: 09/27/24 I am a: Patient What is your living situation today?: I have a steady place to live Within the past 12 months, did the food you bought not last and you didn't have the money to get more?: I choose not to answer this question Within the past 12 months, did you worry whether your food would run out before you got money to buy more?: I choose not to answer this question Do you have trouble paying for medicines?: Yes Do you have trouble getting transportation to medical appointments?: No Do you have trouble paying your heating and electricity bill?: Yes Do you have trouble taking care of your child, family member or friend?: No Do you have trouble with day-to-day activities such as bathing, preparing meals, shopping, managing finances, etc.?: No Are you currently unemployed and looking for a job?: No Are you interested in more education?: No Please select the resources that you would like help with: None Currently or been in a relationship where the following occur: No concerns reported THRIVE Score: 1 KEVIN-7 AMB Questionnaire KEVIN-7 Date KEVIN - 7 assessed: 09/28/24 Source: Developed by Drs. Nawaf Augustin, Kaila oMran, Maurice Parada and colleagues, with an educational erika from [employer]. Review of Systems Const All systems reviewed & are unremarkable except as noted in HPI and below Card Denies chest pain at rest, Denies chest pain with activity, Denies edema, Denies irregular heart rhythm, Denies claudication, Denies dyspnea, Denies dyspnea on exertion, Denies orthopnea, Denies paroxysmal nocturnal dyspnea and Denies slow heart rate Resp Denies cough, Denies dyspnea and Denies dyspnea on exertion GI Denies abdominal pain, Denies change in bowel habits, Denies excessive flatus, Denies nausea and Denies vomiting Denies urinary incontinence, Denies urinary hesitancy and Denies urinary urgency Musc Denies abnormal gait, Denies atrophy, Denies deformity and Denies limited range of motion Skin/Breast Denies bleeding lesions, Denies changing lesions and Denies rash Neuro Denies abnormal gait and Denies lack of coordination Physical exam (Primary Care) Vital Signs: Last Vital Signs Temp 97.3 F 01/12/25 15:15 Pulse 83 01/12/25 15:15 Resp 20 01/12/25 15:15 BP 122/76 01/12/25 15:15 Pulse Ox 100 01/12/25 15:15 Oxygen Delivery Method Room Air 01/12/25 15:15 BMI result Body Mass Index 30.1 BMI Assessment/Plan discussion: High BMI High, discussed plan: lifestyle, weight reduction, dietary and physical activity Tobacco/Smoking Status: Tobacco use Status Tobacco use date assessed 09/28/24 01/12/25 15:20 Patient Tobacco Use Status Former Tobacco user 01/12/25 15:20 Tobacco use type Cigarette 01/12/25 15:20 e-Cigarette/Vaping Use Never Used 01/12/25 15:20 Thrive Assessment: Date of Thrive Assessment Date Thrive assessed 09/27/24 01/12/25 15:20 Currently or been in a relationship where the following occur: No concerns reported [facility] Head: Yes normal to inspection, Yes normocephalic and Yes atraumatic Ears: external ears normal Eyes General: appearance normal, both eyes and all related structures Eyelids: Yes eyelids normal Conjunctivae: conjunctivae normal Neck Neck: Yes normal visual inspection and Yes supple Resp Effort & Inspection: normal respiratory effort Auscultation: clear to auscultation bilaterally Cardio Jugular venous distension: no JVD Rate: regular rate Rhythm: regular rhythm Heart sounds: S1 normal heart sound present and S2 normal heart sound present GI Inspection: Yes normal to inspection Palpation (GI): Soft to palpation and nontender Auscultation: normal bowel sounds Skin General skin exam: no rashes or lesions noted Neuro General: no focal motor deficits Extrem General: Yes full ROM Psych Appearance: grossly normal Coding Level of Care Code Est Pt Level 3 (19536) Est Pt Prev Care 40-64y(52463) Diagnoses Normal physical exam Z00.00 Skin lesion L98.9 Time Spent (min) 30 Assessment & Plan Assessment & Plan (1) Normal physical exam: Code(s): Z00.00 - Encounter for general adult medical examination without abnormal findings Category: Medical (2) Skin lesion: Code(s): L98.9 - Disorder of the skin and subcutaneous tissue, unspecified Category: Medical Plan Plan 1. Encounter for general adult medical examination without abnormal findings Z00.00 The patient is due for routine annual labs. Fasting blood work will be ordered to recheck her thyroid, cholesterol, blood sugar, and kidney and liver function. A vitamin D level will also be checked to determine the appropriate dosage for supplementation, as she is not currently taking it. The patient will obtain her flu shot at a pharmacy. 2. Disorder of the skin and subcutaneous tissue, unspecified L98.9 The patient has a skin lesion on her back that is concerning due to symptoms of intermittent tingling, pain, and pruritus, as well as irregular borders on examination. Given her family history of skin cancer and personal history of sun exposure, a referral will be made to dermatology for a full body skin exam and evaluation of this lesion and another one noted on her scalp. The referral will be directed to [place], with a backup option in [place] depending on insurance acceptance. Orders: Orders Vitamin D 25-OH Total Today E55.9 - Vitamin D deficiency, unspecified Lipid Panel Today E78.5 - Hyperlipidemia, unspecified Comprehensive [place]. Panel Fast Today E78.00 - Pure hypercholesterolemia, unspecified Thyroid Stimulating Hormone Today R79.89 - Other specified abnormal findings of blood chemistry Free T4 (Free Thyroxine) Today R79.89 - Other specified abnormal findings of blood chemistry Referrals Dermatology Referral L98.9 - Disorder of the skin and subcutaneous tissue, unspecified, Z80.8 - Family history of malignant neoplasm of other organs or systems
[2025-01-12 15:15] VITALS: BP 122/76; PULSE 83; RESP 20; TEMP 36.3; O2SAT 100; BMI 30.1
== END 2025-01-12 16:00 | disposition home or self-care (01) ==
PROVIDERS: PCP Internal Medicine; Visit Provider Internal Medicine
DX: Z00.00 Encounter for general adult medical examination without abnormal findings (principal); L98.9 Disorder of the skin and subcutaneous tissue, unspecified